=== PATIENT | female | born 1980 | race American Indian/Alaskan Native ===

== ENCOUNTER 2024-03-12 08:23 | Inpatient (IN) | payer MEDICAID, SELFPAY ==
[2024-03-12] VITALS (40 sets, daily range): BP systolic 97–126; BP diastolic 46–77; PULSE 75–104; RESP 15–36; TEMP 36.1–37.8; O2SAT 95–100; BMI 29.9; BMI 30.6
--- NOTE | 2024-03-12 | PATH_ITS ---
[facility] Accession Number: [id number] No. of containers..01 Tissue . 01 Material submitted: . appendix - APPENDIX . 01 Diagnosis: APPENDIX, APPENDECTOMY: Acute suppurative and necrotizing appendicitis, and associated acute serositis. Negative for malignancy. MRV 03/16/2024 1256 Local . 01 Electronically signed: . Isaías Fleming MD, Pathologist NPI- [id number] . 01 Gross description: . Received in formalin with two patient identifiers and appendix, is a boss vermiform appendix, 6.2 cm in length by 1.0 cm in diameter, with boss, roughened serosa and a full thickness defect, 0.2 cm in greatest dimension with adherent boss material consistent with exudate. The mesoappendix extends out to 2.4 cm. The margin is inked blue, and sectioning reveals a lumen with brown solid material measuring 0.3 cm in diameter. The fernandez average 0.2 cm thick, and are otoole-boss with no lesions identified. Twister Operator sections to include the margin, one-half of the bisected distal tip, and cross section to include area of defect are submitted in A1. ([id number]) /MRV 03/15/2024 1651 Local . 01 Pathologist provided ICD-10: K35.80 . 01 CPT . 451472 Specimen Comment: A courtesy copy of this report has been sent to [phone] Performed at: [address] [id number] MD Moses Bingham MD Phone: [phone]
[2024-03-12] MEDS: ONDANSETRON 4 MG/2 ML INJ IV ×2 (08:35→15:22)
--- NOTE | 2024-03-12 08:35 | ED_ITS ---
HPI - General Adult General Chief complaint: Abdominal Pain Stated complaint: vomiting, abd pain t-2 Time Seen by Provider: 03/12/24 08:27 Source: patient Mode of arrival: Ambulatory Limitations: no limitations History of Present Illness HPI narrative: Patient is a 43-year-old female. No prior abdominal surgeries who is here for evaluation of 2 days of generalized abdominal discomfort nausea and diarrhea. No urinary symptoms. States she can not eat because every time she does she becomes very nauseous in the pain gets worse. No fevers. No recent travel. Has not tried anything for the symptoms prior to arrival. No chest pain or shortness of breath. Related Data Home Medications Medication Instructions Recorded Confirmed [ VITAMINS] 1 tab PO Q DAY ##0 08/09/10 Allergies Allergy/AdvReac Type Severity Reaction Status Date / Time INGREDIENT: NKDA - NO KNOWN Allergy Unknown Uncoded 12/09/17 12:01 DRUG ALLERGIES Review of Systems Review of Systems Narrative: See HPI Patient History Social History Smoking Status: Never smoker Exam Initial Vital Signs Initial Vital Signs: Vital Signs Temperature 98.0 F 03/12/24 08:27 Pulse Rate 103 H 03/12/24 08:27 Respiratory Rate 32 H 03/12/24 08:27 Blood Pressure 97/46 L 03/12/24 08:27 Pulse Oximetry 100 03/12/24 08:27 Oxygen Delivery Method Room Air 03/12/24 08:27 [facility] Head: normal to inspection and normocephalic Resp Effort & Inspection: normal respiratory effort Auscultation: clear to auscultation bilaterally Cardio Rate: regular rate Rhythm: regular rhythm GI Inspection: normal to inspection and non-distended Palpation: soft, guarding, No rigid and tender Skin General: no rashes or lesions noted Neuro General: patient alert, patient awake and moves all extremities Extrem General: normal to inspection Course Orders Ordered: ED Orders 03/12/24 08:34 CT abdomen pelvis w con Stat 03/12/24 08:37 Complete Blood Count AUTO DIFF Stat Comprehensive Metabolic Panel Stat Lactate (Lactic Acid) Stat Lipase Stat Test Serum,Qual Stat 03/12/24 08:56 Packed Cells Stat Type and Screen Stat 03/12/24 10:13 RETIC [Reticulocyte Count, Percent] Stat 03/12/24 10:14 Consult to General Surgery Stat 03/12/24 10:15 Blood Culture Stat Discontinued Medications Sodium Chloride (Normal Saline 0.9%) 1,000 mls @ 1,000 mls/hr IV BOLUS ONE Stop: 03/12/24 09:26 Last Infusion: 03/12/24 09:37 Dose: Infused Documented By: Admin: 03/12/24 08:40 Dose: 1,000 mls/hr Documented By: JAYRO Piperacillin Sod/Tazobactam (Sod 4.5 gm/ Sodium Chloride) 100 mls @ 200 mls/hr IV NOW ONE Stop: 03/12/24 10:08 Last Admin: 03/12/24 10:34 Dose: 200 mls/hr Documented By: SCARLET Ketorolac Tromethamine (Ketorolac 30 Mg/Ml Vial) 30 mg IV NOW ONE Stop: 03/12/24 08:35 Last Admin: 03/12/24 09:37 Dose: Not Given Documented By: SCARLET Morphine Sulfate (Morphine 4 Mg/Ml Inj) 4 mg IV NOW ONE Stop: 03/12/24 08:59 Last Admin: 03/12/24 09:43 Dose: 4 mg Documented By: SCARLET Ondansetron HCl (Ondansetron 4 Mg/2 Ml Inj) 4 mg IV NOW ONE Stop: 03/12/24 08:28 Last Admin: 03/12/24 08:35 Dose: 4 mg Documented By: JAYRO Vital Signs Vital signs: Vital Signs - 8 hr 03/12/24 08:27 03/12/24 08:30 03/12/24 08:31 Temperature 98.0 F Pulse Rate 103 H Respiratory Rate 32 H Blood Pressure 97/46 L 97/46 L Blood Pressure [Right Arm] Pulse Oximetry 100 100 Oxygen Delivery Method Room Air 03/12/24 08:31 03/12/24 08:45 03/12/24 08:45 Temperature Pulse Rate 102 H 92 H Respiratory Rate 26 H Blood Pressure 106/54 L Blood Pressure [Right Arm] Pulse Oximetry 100 98 Oxygen Delivery Method Room Air 03/12/24 09:00 03/12/24 09:00 03/12/24 09:10 Temperature Pulse Rate 95 H Respiratory Rate 31 H Blood Pressure 100/52 L 106/52 L Blood Pressure [Right Arm] Pulse Oximetry 100 Oxygen Delivery Method 03/12/24 09:10 03/12/24 09:11 03/12/24 09:25 Temperature Pulse Rate 95 H 96 H Respiratory Rate 31 H 24 Blood Pressure 103/58 L Blood Pressure [Right Arm] 106/52 L Pulse Oximetry 100 98 Oxygen Delivery Method Room Air 03/12/24 09:25 03/12/24 09:30 03/12/24 09:30 Temperature Pulse Rate 100 H 96 H Respiratory Rate 29 H 29 H Blood Pressure 115/66 Blood Pressure [Right Arm] Pulse Oximetry 100 100 Oxygen Delivery Method 03/12/24 09:40 03/12/24 09:40 03/12/24 09:47 Temperature Pulse Rate 98 H Respiratory Rate 25 H Blood Pressure 105/59 L 102/58 L Blood Pressure [Right Arm] Pulse Oximetry 100 Oxygen Delivery Method 03/12/24 09:47 03/12/24 09:50 03/12/24 09:50 Temperature Pulse Rate 99 H 97 H Respiratory Rate 36 H 28 H Blood Pressure 107/54 L Blood Pressure [Right Arm] Pulse Oximetry 100 100 Oxygen Delivery Method 03/12/24 10:06 03/12/24 10:23 Temperature 100.0 F H 99.7 F H Pulse Rate 94 H 96 H Respiratory Rate 28 H 24 Blood Pressure 103/55 L 107/56 L Blood Pressure [Right Arm] Pulse Oximetry Oxygen Delivery Method Medical Decision Making Lab Data Lab results reviewed: Yes I reviewed the patient's lab results. 03/12/24 08:37 03/12/24 08:37 Labs: Lab Results 03/12/24 03/12/24 Range/Units 08:37 08:56 WBC 9.6 (4.5-11.0) X10^3/uL RBC 2.77 L (4.0-5.2) X10^6/uL Hgb 3.9 L* (12.0-16.0) g/dL Hct 14.5 L* (36-46) % MCV 52.2 L (80-100) fL MCH 14.0 L (26-34) PG MCHC 26.8 L (30-36) % RDW 21.2 H (11.6-14.8) % Plt Count 419 H (150-400) X10^3/uL Neut % (Auto) 80.0 H (50-75) % Lymph % (Auto) 12.4 L (25-40) % [place] % (Auto) 7.1 (3-14) % Eos % (Auto) 0.1 L (2-4) % Baso % (Auto) 0.4 (0-2) % Neut # (Auto) 7700 H (8903-8572) /uL Lymph # (Auto) 1200 (5280-1299) /uL [place] # (Auto) 700 (0-900) /uL Eos # (Auto) 0 (0-450) /uL Baso # (Auto) 0 (0-100) /uL RBC Morphology See below Polychromasia 1+ H Hypochromasia 2+ H Anisocytosis 3+ H Microcytosis 2+ H Tear Drop Cells 1+ H Ovalocytes 1+ H Sodium 138 (137-145) mmol/L Potassium 3.3 L (3.4-5.1) mmol/L Chloride 109 H (98-107) mmol/L Carbon Dioxide 21 L (22-32) mmol/L BUN 4 L (7-17) mg/dL Creatinine 0.77 (0.52-1.04) mg/dL Estimated GFR > 60 (>60) mL/min BUN/Creatinine Ratio 5.2 L (6-22) Glucose 131 H (70-100) mg/dL Lactate 1.9 (0.7-2.1) mmol/L Calcium 8.4 (8.4-10.2) mg/dL Total Bilirubin 2.7 H (0.2-1.3) mg/dL AST 21 (14-36) IU/L ALT 12 (<35) IU/L Alkaline Phosphatase 105 (38-126) U/L Total Protein 7.5 (6.3-8.2) g/dL Albumin 4.4 (3.5-5.0) g/dL Globulin 3.1 (1.7-4.1) g/dL Albumin/Globulin Ratio 1.4 (1.0-2.8) Lipase 30 (23-300) U/L Serum , Qual Negative (Negative) Blood Type O Positive Antibody Screen Negative Crossmatch See Detail Imaging Data CT scan - abdomen/pelvis: Radiologist's Impression: PROCEDURE: CT ABDOMEN PELVIS W CON INDICATIONS: generalized abd pain TECHNIQUE: After the administration of intravenous contrast, axial sections acquired from the lung bases to the pubic symphysis. Coronal and sagittal reformats were performed. For radiation dose reduction, the following was used: automated exposure control, adjustment of mA and/or kV according to patient size. COMPARISON: None. FINDINGS: Image quality: Diagnostic. Lower Chest: No significant findings. ABDOMEN: Liver: No solid mass. There is hepatomegaly and hepatic steatosis. Gallbladder: No radiopaque gallstones or wall thickening. Biliary ducts: No biliary dilation. Pancreas: No ductal dilation. Spleen: Size is within normal limits. Adrenal Glands: No adrenal nodules. Kidneys and Ureters: No hydronephrosis. No solid mass. Sub cm midpole left renal cyst is seen measures 7 mm in size. No complex renal cystic lesion which requires follow up. Stomach and Bowel: There is no evidence of bowel obstruction. Significant wall thickening and mesenteric fat stranding in right lower quadrant abdomen is seen without normal appearing appendix. No abscess collection. No other area of abnormal bowel wall thickening. Peritoneum: No abnormal intraperitoneal fluid. No free air. Ventral Wall: No significant ventral hernia. Abdominal Nodes: No retroperitoneal or mesenteric adenopathy by size criteria. Vessels: Aorta and inferior vena cava are normal in size. PELVIS: Pelvic Organs: Unremarkable. Bladder: No bladder wall thickening, accounting for underdistention. Pelvic Nodes: No enlarged lymph nodes. Miscellaneous: No inguinal hernias are seen. Bones: No aggressive osseous abnormality. IMPRESSION: 1. Finding is suggestive of acute appendicitis with inflammatory changes in right lower quadrant. No signs of perforation. No free fluid or free air. No abscess collection. 2. Hepatomegaly, and hepatic steatosis. No discrete hepatic lesion. MDM Narrative Medical decision making narrative: 0900: Patient's hemoglobin and hematocrit are low. Which is somewhat of a surprising finding. She was not tachycardic. No hypotensive. Has not had melena. Has not had bright red blood per rectum. Potentially thought that she had a small amount of dark colored vomit yesterday. She thinks that she has had a blood transfusion in the past. States that was a couple years ago when she had COVID. She does not know why she had the blood transfusion in his not 100% sure that she did receive blood. She does not drink alcohol. Took Advil 1 time yesterday but otherwise takes no other nonsteroidal anti-inflammatories. Is not on blood thinners. Discussed the risks and benefits of a blood transfusion and the patient agreed to the blood transfusion. CT scan shows acute appendicitis without perforation. Will start the patient on Zosyn. Patient is receiving a blood transfusion. Discussed the case with Dr. Rincon on-call for General surgery who asked that the patient be admitted to the medicine service because of her anemia. He would see the patient and make decisions about surgery and colonoscopy. I then discuss the case with Dr. Celis hospitalist on-call who will admit. Discussed the need for admission with the patient. She expressed understanding and agreement. Discharge Plan Departure Patient Disposition: Admitted As Inpatient Clinical Impression: Acute appendicitis, Anemia Admit Date/Time: 03/12/24 10:36
[2024-03-12] MEDS: SODIUM CHLORIDE 0.9% 1,000 ML 1000 ML IV (08:40)
[2024-03-12 08:51] LABS: Add Manual Diff / Slide Review NO; Basophils Absolute Auto 0 /uL (0-100); Basophils Percent Auto 0.4 % (0-2); Eosinophils Absolute Auto 0 /uL (0-450); Eosinophils Percent Auto 0.1 % (2-4); Hemoglobin 3.9 g/dL (12.0-16.0); Lymphocytes Absolute Auto 1200 /uL (1100-4500); Lymphocytes Percent Auto 12.4 % (25-40); Mean Corpuscular HGB Conc 26.8 % (30-36); Mean Corpuscular Volume 52.2 fL (80-100); Monocytes Absolute Auto 700 /uL (0-900); Monocytes Percent Auto 7.1 % (3-14); Neutrophils Absolute Auto 7700 /uL (1500-7000); Platelet Count 419 X10^3/uL (150-400); Red Blood Cell Count 2.77 X10^6/uL (4.0-5.2); Red Cell Distribution Width 21.2 % (11.6-14.8); White Blood Cell Count 9.6 X10^3/uL (4.5-11.0)
[2024-03-12 08:52] LABS: Hematocrit 14.5 % (36-46)
[2024-03-12 09:02] LABS: Alanine Aminotransferase 12 IU/L (<35); Albumin 4.4 g/dL (3.5-5.0); Albumin Globulin Ratio 1.4 (1.0-2.8); Alkaline Phosphatase 105 U/L (38-126); Aspartate Aminotransferase 21 IU/L (14-36); BUN Creatinine Ratio 5.2 (6-22); Bilirubin Total 2.7 mg/dL (0.2-1.3); Blood Urea Nitrogen 4 mg/dL (7-17); Calcium 8.4 mg/dL (8.4-10.2); Carbon Dioxide 21 mmol/L (22-32); Chloride 109 mmol/L (98-107); Estimated Glomerular Filt Rate > 60 mL/min (>60); Globulin 3.1 g/dL (1.7-4.1); Glucose 131 mg/dL (70-100); HEMOLYSIS < 15 (0-50); Lipase 30 U/L (23-300); Potassium 3.3 mmol/L (3.4-5.1); Pregnancy Test Serum,Qual Negative (Negative); Sodium 138 mmol/L (137-145); Total Protein 7.5 g/dL (6.3-8.2)
[2024-03-12 09:12] LABS: Anisocytosis 3+
[2024-03-12 09:13] LABS: Hypochromasia 2+; Microcytosis 2+
[2024-03-12 09:14] LABS: Ovalocytes 1+; Tear Drop Cells 1+
[2024-03-12 09:15] LABS: Polychromasia 1+
[2024-03-12] MEDS: MORPHINE 4 MG/ML INJ IV (09:43)
[2024-03-12 10:17] LABS: Lactate (Lactic Acid) 1.9 mmol/L (0.7-2.1)
[2024-03-12] MEDS: PIPERACILLIN/TAZO 4.5 GM in SODIUM CHLORIDE 0.9% 100 ML IV (10:34)
--- NOTE | 2024-03-12 10:57 | PM.HP.1 ---
History of Present Illness History of Present Illness Date Patient Seen: 03/12/24 Time Patient Seen: 13:00 Chief complaint: vomiting, abd pain t-2 Narrative: The patient is a 43-year-old female with a history of no previous abdominal surgery. She presented with right lower quadrant pain which has been progressive over the last day. In the emergency department a CT scan indicated appendicitis. The patient is tender in all quadrants of her abdomen. She was also found to have a hemoglobin of 3.9 and given 1 unit of blood. She notes a history of iron being low but no clear memory of iron-deficiency anemia. She denies any vomiting but she was nauseated. She had a normal bowel movement 2 days ago. Any movement increases her pain. She does have a history of heavy periods over the years and is just at the end of a. At this time. She denies any trauma. She had 1 bite of Jell-O and had increased pain. General surgery saw her and elected to take her for an exploratory laparotomy and possible laparoscopic appendectomy today. Anesthesia has requested a 2nd unit of blood and this is ordered stat. [facility] Social History household members: spouse and family Smoking Status: Never smoker Meds Home Medications and Allergies Allergies Allergy/AdvReac Type Severity Reaction Status Date / Time No Known Allergies Allergy Verified 03/12/24 13:14 Review of Systems Review of Systems Narrative: All else reviewed and otherwise unremarkable except as noted in the history and physical. Exam Vital Signs (past 8 hours): - 03/12/24 08:27 03/12/24 08:30 03/12/24 08:31 Temperature 98.0 F Pulse Rate 103 H Respiratory Rate 32 H Blood Pressure 97/46 L 97/46 L Blood Pressure [Right Arm] Pulse Oximetry 100 100 Oxygen Delivery Method Room Air 03/12/24 08:31 03/12/24 08:45 03/12/24 08:45 Temperature Pulse Rate 102 H 92 H Respiratory Rate 26 H Blood Pressure 106/54 L Blood Pressure [Right Arm] Pulse Oximetry 100 98 Oxygen Delivery Method Room Air 03/12/24 09:00 03/12/24 09:00 03/12/24 09:10 Temperature Pulse Rate 95 H Respiratory Rate 31 H Blood Pressure 100/52 L 106/52 L Blood Pressure [Right Arm] Pulse Oximetry 100 Oxygen Delivery Method 03/12/24 09:10 03/12/24 09:11 03/12/24 09:25 Temperature Pulse Rate 95 H 96 H Respiratory Rate 31 H 24 Blood Pressure 103/58 L Blood Pressure [Right Arm] 106/52 L Pulse Oximetry 100 98 Oxygen Delivery Method Room Air 03/12/24 09:25 03/12/24 09:30 03/12/24 09:30 Temperature Pulse Rate 100 H 96 H Respiratory Rate 29 H 29 H Blood Pressure 115/66 Blood Pressure [Right Arm] Pulse Oximetry 100 100 Oxygen Delivery Method 03/12/24 09:40 03/12/24 09:40 03/12/24 09:47 Temperature Pulse Rate 98 H Respiratory Rate 25 H Blood Pressure 105/59 L 102/58 L Blood Pressure [Right Arm] Pulse Oximetry 100 Oxygen Delivery Method 03/12/24 09:47 03/12/24 09:50 03/12/24 09:50 Temperature Pulse Rate 99 H 97 H Respiratory Rate 36 H 28 H Blood Pressure 107/54 L Blood Pressure [Right Arm] Pulse Oximetry 100 100 Oxygen Delivery Method 03/12/24 10:00 03/12/24 10:00 03/12/24 10:04 Temperature Pulse Rate 94 H Respiratory Rate 20 Blood Pressure 105/53 L 103/55 L Blood Pressure [Right Arm] Pulse Oximetry 98 Oxygen Delivery Method 03/12/24 10:04 03/12/24 10:06 03/12/24 10:12 Temperature 100.0 F H Pulse Rate 95 H 94 H 97 H Respiratory Rate 26 H 28 H 24 Blood Pressure 103/55 L Blood Pressure [Right Arm] Pulse Oximetry 99 100 Oxygen Delivery Method 03/12/24 10:12 03/12/24 10:20 03/12/24 10:20 Temperature Pulse Rate 100 H Respiratory Rate 27 H Blood Pressure 114/53 L 114/58 L Blood Pressure [Right Arm] Pulse Oximetry 100 Oxygen Delivery Method 03/12/24 10:23 03/12/24 10:23 03/12/24 10:23 Temperature 99.7 F H Pulse Rate 96 H 98 H Respiratory Rate 24 26 H Blood Pressure 107/56 L 107/56 L Blood Pressure [Right Arm] Pulse Oximetry 99 Oxygen Delivery Method 03/12/24 10:30 03/12/24 10:30 07/13/24 10:40 Temperature Pulse Rate 97 H 96 H Respiratory Rate 20 20 Blood Pressure 111/55 L Blood Pressure [Right Arm] Pulse Oximetry 99 98 Oxygen Delivery Method Room Air 03/12/24 10:40 Temperature Pulse Rate Respiratory Rate Blood Pressure 112/57 L Blood Pressure [Right Arm] Pulse Oximetry Oxygen Delivery Method Oxygen Delivery Method Room Air Narrative Exam Narrative: NAD, alert and oriented, fluent speech, calm. Normocephalic skull, EOMI, anicteric sclera, symmetric pupils. Oropharynx unremarkable, no droop. Neck supple, midline trachea, no adenopathy. Lungs clear, normal rate and effort. Heart regular, no murmur gallop or rub. Abdomen is soft, non distended and relatively tender in all quadrants. Extremities are free of edema. Skin is free of rash or lesions. Joints are not swollen or deformed. Judgment appears to be normal. Objective Imaging CT scan - abdomen: Radiologist's impression: 1. Finding is suggestive of acute appendicitis with inflammatory changes in right lower quadrant. No signs of perforation. No free fluid or free air. No abscess collection. 2. Hepatomegaly, and hepatic steatosis. No discrete hepatic lesion. Labs 03/12/24 12:50 03/12/24 08:37 Labs: Laboratory Results - last 24 hr 03/12/24 03/12/24 08:37 08:56 WBC 9.6 RBC 2.77 L Hgb 3.9 L* Hct 14.5 L* MCV 52.2 L MCH 14.0 L MCHC 26.8 L RDW 21.2 H Plt Count 419 H Neut % (Auto) 80.0 H Lymph % (Auto) 12.4 L [place] % (Auto) 7.1 Eos % (Auto) 0.1 L Baso % (Auto) 0.4 Neut # (Auto) 7700 H Lymph # (Auto) 1200 [place] # (Auto) 700 Eos # (Auto) 0 Baso # (Auto) 0 RBC Morphology See below Polychromasia 1+ H Hypochromasia 2+ H Anisocytosis 3+ H Microcytosis 2+ H Tear Drop Cells 1+ H Ovalocytes 1+ H Sodium 138 Potassium 3.3 L Chloride 109 H Carbon Dioxide 21 L BUN 4 L Creatinine 0.77 Estimated GFR > 60 BUN/Creatinine Ratio 5.2 L Glucose 131 H Lactate 1.9 Calcium 8.4 Total Bilirubin 2.7 H AST 21 ALT 12 Alkaline Phosphatase 105 Total Protein 7.5 Albumin 4.4 Globulin 3.1 Albumin/Globulin Ratio 1.4 Lipase 30 Serum , Qual Negative Blood Type O Positive Antibody Screen Negative Crossmatch See Detail Assessment & Plan Assessment & Plan narrative: 1. Abdominal pain with evidence of acute appendicitis, present on admission and active. 2. Profound anemia without report of recent melena or blood per rectum, present on admission and active. 3. Hypokalemia, present on admission and active. Plan: -transfuse a 2nd unit of blood stat. -OR for appendectomy and exploratory lap. -we will run anemia panel including iron stores. -we will replace potassium. She was full resuscitation. There is a 2 midnight expectation of need for hospital services. She was admitted inpatient status. Time-Based Coding :: [TOTAL MINUTES] spent with patient and on the chart (including review of chart, obtaining history, exam, reviewing outside data, placing orders, documenting exam and treatment plan, and counseling patient) on [DATE]. Quality MIPS - Admit I confirm the patient?s Advance Care Plan is present, Code status is documented, Surrogate decision maker is in patient?s record [If Yes, STOP here]: Yes MIPS - Meds 'Current medications' to include all prescriptions, [id number] products, herbals, cannabis/cannabidiol products, and vitamin/mineral/dietary (nutritional) supplements. I have utilized all available resources to obtain, update, or review the patient?s current medications. [If Yes, STOP here]: Yes
[2024-03-12] MEDS: DEXTROSE 5%-0.9% NS 1,000 ML 100 ML IV ×2 (11:25→17:28)
[2024-03-12] MEDS: OXYCODONE IR 5 MG TABLET PO ×2 (11:55→23:10)
--- NOTE | 2024-03-12 12:31 | P.CONS_ITS ---
History of Present Illness Consult details Date Patient Seen: 03/12/24 Time Patient Seen: 12:32 Chief complaint: vomiting, abd pain t-2 Narrative: Emerita is a 43-year-old woman presented to the emergency department today with 2 days of abdominal pain. A CT scan was suggestive of acute uncomplicated appendicitis. She was also noted to be profoundly anemic with a hemoglobin of 3.9. She has not noted any obvious rectal bleeding or melena. She has no known significant past medical history to indicate cause for anemia. She did receive a unit of packed red blood cells upon admission which has completed. She consumed 1 spoon full of Jell-O and developed sudden increase in her abdominal pain. Meds Home Medications and Allergies Allergies Allergy/AdvReac Type Severity Reaction Status Date / Time INGREDIENT: NKDA - NO KNOWN Allergy Unknown Uncoded 12/09/17 12:01 DRUG ALLERGIES Exam Vital Signs (past 8 hours): - 03/12/24 08:27 03/12/24 08:30 03/12/24 08:31 Temperature 98.0 F Pulse Rate 103 H Respiratory Rate 32 H Blood Pressure 97/46 L 97/46 L Blood Pressure [Right Arm] Pulse Oximetry 100 100 Oxygen Delivery Method Room Air Oxygen Flow Rate 03/12/24 08:31 03/12/24 08:45 03/12/24 08:45 Temperature Pulse Rate 102 H 92 H Respiratory Rate 26 H Blood Pressure 106/54 L Blood Pressure [Right Arm] Pulse Oximetry 100 98 Oxygen Delivery Method Room Air Oxygen Flow Rate 03/12/24 09:00 03/12/24 09:00 03/12/24 09:10 Temperature Pulse Rate 95 H Respiratory Rate 31 H Blood Pressure 100/52 L 106/52 L Blood Pressure [Right Arm] Pulse Oximetry 100 Oxygen Delivery Method Oxygen Flow Rate 03/12/24 09:10 03/12/24 09:11 03/12/24 09:25 Temperature Pulse Rate 95 H 96 H Respiratory Rate 31 H 24 Blood Pressure 103/58 L Blood Pressure [Right Arm] 106/52 L Pulse Oximetry 100 98 Oxygen Delivery Method Room Air Oxygen Flow Rate 03/12/24 09:25 03/12/24 09:30 03/12/24 09:30 Temperature Pulse Rate 100 H 96 H Respiratory Rate 29 H 29 H Blood Pressure 115/66 Blood Pressure [Right Arm] Pulse Oximetry 100 100 Oxygen Delivery Method Oxygen Flow Rate 03/12/24 09:40 03/12/24 09:40 03/12/24 09:47 Temperature Pulse Rate 98 H Respiratory Rate 25 H Blood Pressure 105/59 L 102/58 L Blood Pressure [Right Arm] Pulse Oximetry 100 Oxygen Delivery Method Oxygen Flow Rate 03/12/24 09:47 03/12/24 09:50 03/12/24 09:50 Temperature Pulse Rate 99 H 97 H Respiratory Rate 36 H 28 H Blood Pressure 107/54 L Blood Pressure [Right Arm] Pulse Oximetry 100 100 Oxygen Delivery Method Oxygen Flow Rate 03/12/24 10:00 03/12/24 10:00 03/12/24 10:04 Temperature Pulse Rate 94 H Respiratory Rate 20 Blood Pressure 105/53 L 103/55 L Blood Pressure [Right Arm] Pulse Oximetry 98 Oxygen Delivery Method Oxygen Flow Rate 03/12/24 10:04 03/12/24 10:06 03/12/24 10:12 Temperature 100.0 F H Pulse Rate 95 H 94 H 97 H Respiratory Rate 26 H 28 H 24 Blood Pressure 103/55 L Blood Pressure [Right Arm] Pulse Oximetry 99 100 Oxygen Delivery Method Oxygen Flow Rate 03/12/24 10:12 03/12/24 10:20 03/12/24 10:20 Temperature Pulse Rate 100 H Respiratory Rate 27 H Blood Pressure 114/53 L 114/58 L Blood Pressure [Right Arm] Pulse Oximetry 100 Oxygen Delivery Method Oxygen Flow Rate 03/12/24 10:23 03/12/24 10:23 03/12/24 10:23 Temperature 99.7 F H Pulse Rate 96 H 98 H Respiratory Rate 24 26 H Blood Pressure 107/56 L 107/56 L Blood Pressure [Right Arm] Pulse Oximetry 99 Oxygen Delivery Method Oxygen Flow Rate 03/12/24 10:30 03/12/24 10:30 03/12/24 10:40 Temperature Pulse Rate 97 H 96 H Respiratory Rate 20 20 Blood Pressure 111/55 L Blood Pressure [Right Arm] Pulse Oximetry 99 98 Oxygen Delivery Method Room Air Oxygen Flow Rate 03/12/24 10:40 03/12/24 10:50 03/12/24 10:50 Temperature Pulse Rate 93 H Respiratory Rate 21 Blood Pressure 112/57 L 111/58 L Blood Pressure [Right Arm] Pulse Oximetry 98 Oxygen Delivery Method Oxygen Flow Rate 03/12/24 10:51 03/12/24 11:00 03/12/24 11:00 Temperature Pulse Rate 93 H Respiratory Rate 21 Blood Pressure 111/56 L Blood Pressure [Right Arm] Pulse Oximetry 98 Oxygen Delivery Method Room Air Room Air Oxygen Flow Rate 03/12/24 11:10 03/12/24 11:59 Temperature 97.4 F L 98.2 F Pulse Rate 94 H 97 H Respiratory Rate 16 24 Blood Pressure 117/59 L 117/60 Blood Pressure [Right Arm] Pulse Oximetry 100 Oxygen Delivery Method Oxygen Flow Rate 0 Oxygen Delivery Method Room Air Oxygen Flow Rate 0 Narrative Exam Narrative: Abdomen rigid Const General: in distress Other: Moaning in pain with her right leg flexed at the hip Objective Labs 03/12/24 08:37 03/12/24 08:37 Labs: Laboratory Results - last 24 hr 03/12/24 03/12/24 08:37 08:56 WBC 9.6 RBC 2.77 L Hgb 3.9 L* Hct 14.5 L* MCV 52.2 L MCH 14.0 L MCHC 26.8 L RDW 21.2 H Plt Count 419 H Neut % (Auto) 80.0 H Lymph % (Auto) 12.4 L [place] % (Auto) 7.1 Eos % (Auto) 0.1 L Baso % (Auto) 0.4 Neut # (Auto) 7700 H Lymph # (Auto) 1200 [place] # (Auto) 700 Eos # (Auto) 0 Baso # (Auto) 0 RBC Morphology See below Polychromasia 1+ H Hypochromasia 2+ H Anisocytosis 3+ H Microcytosis 2+ H Tear Drop Cells 1+ H Ovalocytes 1+ H Sodium 138 Potassium 3.3 L Chloride 109 H Carbon Dioxide 21 L BUN 4 L Creatinine 0.77 Estimated GFR > 60 BUN/Creatinine Ratio 5.2 L Glucose 131 H Lactate 1.9 Calcium 8.4 Total Bilirubin 2.7 H AST 21 ALT 12 Alkaline Phosphatase 105 Total Protein 7.5 Albumin 4.4 Globulin 3.1 Albumin/Globulin Ratio 1.4 Lipase 30 Serum , Qual Negative Blood Type O Positive Antibody Screen Negative Crossmatch See Detail PFSH Social History household members: spouse and family Tobacco & Substance Use Smoking Status: Never smoker Assessment & Plan Assessment and plan (1) Acute appendicitis: Qualifiers: Acute appendicitis type: with generalized peritonitis Appendicitis gangrene presence: unspecified whether gangrene present Appendicitis perforation presence: unspecified whether perforation present Appendicitis abscess presence: without abscess Qualified Code(s): K35.209 - Acute appendicitis with generalized peritonitis, without abscess, unspecified as to perforation Status: Acute (2) Anemia: Qualifiers: Anemia type: unspecified type Qualified Code(s): D64.9 - Anemia, unspecified Status: Acute Plan Given the sudden severe increase abdominal pain and her physical exam I recommend we proceed with a laparoscopic appendectomy. I mentioned to her there is a small possibility that she may have something other than appendicitis causing pain such as a perforation of her bowel and we would perform any indicated procedures based on the findings at the time of the laparoscopic appendectomy. We will also start another unit of packed red blood cells for her severe anemia since we are proceeding to surgery today. Time-Based Coding :: [TOTAL MINUTES] spent with patient and on the chart (including review of chart, obtaining history, exam, reviewing outside data, placing orders, documenting exam and treatment plan, and counseling patient) on [DATE].
[2024-03-12 13:03] LABS: Add Manual Diff / Slide Review NO; Basophils Absolute Auto 100 /uL (0-100); Basophils Percent Auto 0.6 % (0-2); Eosinophils Absolute Auto 0 /uL (0-450); Lymphocytes Absolute Auto 900 /uL (1100-4500); Lymphocytes Percent Auto 5.9 % (25-40); Mean Corpuscular HGB Conc 27.7 % (30-36); Mean Corpuscular Hemoglobin 16.4 PG (26-34); Mean Corpuscular Volume 59.1 fL (80-100); Monocytes Absolute Auto 700 /uL (0-900); Monocytes Percent Auto 4.4 % (3-14); Neutrophils Absolute Auto 13700 /uL (1500-7000); Neutrophils Percent Auto 89.1 % (50-75); Platelet Count 358 X10^3/uL (150-400); Red Blood Cell Count 3.03 X10^6/uL (4.0-5.2); Red Cell Distribution Width 27.6 % (11.6-14.8); White Blood Cell Count 15.4 X10^3/uL (4.5-11.0)
[2024-03-12 13:08] LABS: Hematocrit 17.9 % (36-46); Reticulocyte Count, Percent 2.7 % (1.1-2.6)
[2024-03-12] MEDS: LACTATED RINGERS 1,000 ML 42 ML IV ×2 (13:18→14:10)
[2024-03-12 13:22] LABS: Anisocytosis 3+; Microcytosis 2+; Ovalocytes 1+
[2024-03-12 13:23] LABS: Hypochromasia 2+; Polychromasia 1+; Tear Drop Cells 1+
--- NOTE | 2024-03-12 14:01 | PC.NURSE ---
1345 pt to OR per bed with anesthesia accompanying. VSS - PRBC in progress
--- NOTE | 2024-03-12 14:21 | SUR.OPER ---
Supine on padded OR bed, head on pillow, safety belt at thigh, left arm padded and tucked at side. Right arm secured on padded arm board <90 degrees abduction. Legs uncrossed. Padded footboard in place. Tape over blanket to secure lower legs.
[2024-03-12] MEDS: ACETAMINOPHEN IV 1,000 MG/100 ML VIAL 400 MG IV (14:25)
[2024-03-12] MEDS: BUPIVACAINE 0.5% W/ EPI (PF) 30 ML VIAL INJ (14:56)
--- NOTE | 2024-03-12 14:57 | PM.OP.1 ---
Operative Date/Time/Diagnoses Date of procedure: 03/12/24 Time of procedure: 14:57 Pre-op diagnosis: Acute appendicitis Post-op diagnosis: same Procedure & Clinicians Procedure: Laparoscopic appendectomy Same procedure as scheduled: Yes Surgeon: Kong Rincon Anesthesia Type: General Operative Notes Procedure in detail: The patient was on scheduled IV antibiotics. The patient was brought to the operating room, placed on the table in the supine position and general endotracheal anesthesia was induced. A time-out was performed. The abdomen was prepped and draped in the usual fashion. After injection of 0.25% Marcaine a 1 cm infraumbilical incision was created with a 15 blade scalpel. The umbilical stalk was grasped with a Margaret clamp to elevate the abdominal wall. The infraumbilical midline fascia was cleared over 1 cm and the fascia was scored with cautery. The peritoneum was pierced with a Peon clamp. The Georges port was placed and the abdomen was insufflated to 15 mmHg. The camera was inserted and there was no evidence of any injury from the entry. Next, 5 mm ports were placed in the suprapubic and left lower quadrant positions under direct vision. The patient was placed in Trendelenburg with the right-side elevated. There was murky fluid in the right lower quadrant and pelvis which was suctioned away. There were loops of small bowel plastered over the appendix. The loops of bowel were bluntly dissected off inflamed appendix. The appendix did appear perforated about two centimeters from the base. There was a good centimeter or so of normal-appearing appendix at the base. The mesoappendix was divided with the Power-seal to the base. Two PDS Endoloops were placed at the base and a 3rd endoloop was placed about a centimeter distally and the appendix was divided sharply. The specimen was placed in a Endo-Catch bag. We suctioned more murky fluid and even some small solid particulate matter from right lower quadrant and pelvis. Limited irrigation was used in the right lower quadrant and pelvis followed by suction to clean away the particular matter. The table was flattened and the terminal ileum and omentum were allowed to slide in over the appendiceal stump. Finally, the 5 mm ports were removed under direct vision. The pneumoperitoneum was released and the Georges port was removed followed by the Endo-Catch bag. Additional local was injected into the fascia and the infraumbilical incision was closed with 2 interrupted 2-0 Vicryl sutures. The skin incisions were closed with 4 Monocryl. Steri-Strips were applied followed by Band-Aids. EBL: 5 mL Specimen: Appendix Post-operative Condition: stable Disposition: PACU
[2024-03-12] MEDS: METOCLOPRAMIDE 10 MG/2 ML INJ IV (15:44)
[2024-03-12] MEDS: PIPERACILLIN/TAZO 3.375 GM in SODIUM CHLORIDE 0.9% 100 ML IV (17:29)
[2024-03-12] MEDS: ACETAMINOPHEN 325 MG TABLET 650 MG PO (23:11)
[2024-03-13] VITALS (9 sets, daily range): BP systolic 91–126; BP diastolic 42–72; PULSE 71–99; RESP 16–18; TEMP 35.7–36.8; O2SAT 95–100
[2024-03-13] MEDS: PIPERACILLIN/TAZO 3.375 GM in SODIUM CHLORIDE 0.9% 100 ML IV ×3 (01:26→17:11)
[2024-03-13] MEDS: DEXTROSE 5%-0.9% NS 1,000 ML 100 ML IV ×3 (01:30→21:33)
[2024-03-13 01:31] LABS: Add Manual Diff / Slide Review NO; Basophils Absolute Auto 0 /uL (0-100); Eosinophils Absolute Auto 0 /uL (0-450); Lymphocytes Absolute Auto 400 /uL (1100-4500); Lymphocytes Percent Auto 1.7 % (25-40); Mean Corpuscular HGB Conc 28.7 % (30-36); Mean Corpuscular Hemoglobin 17.8 PG (26-34); Mean Corpuscular Volume 62.2 fL (80-100); Monocytes Absolute Auto 700 /uL (0-900); Monocytes Percent Auto 3.2 % (3-14); Neutrophils Absolute Auto 20200 /uL (1500-7000); Neutrophils Percent Auto 95.1 % (50-75); Platelet Count 328 X10^3/uL (150-400); Red Blood Cell Count 3.03 X10^6/uL (4.0-5.2); Red Cell Distribution Width 34.4 % (11.6-14.8); White Blood Cell Count 21.3 X10^3/uL (4.5-11.0)
[2024-03-13 01:35] LABS: Hematocrit 18.9 % (36-46); Hemoglobin 5.4 g/dL (12.0-16.0)
[2024-03-13 02:17] LABS: BUN Creatinine Ratio 7.6 (6-22); Blood Urea Nitrogen 5 mg/dL (7-17); Calcium 7.6 mg/dL (8.4-10.2); Carbon Dioxide 21 mmol/L (22-32); Chloride 111 mmol/L (98-107); Estimated Glomerular Filt Rate > 60 mL/min (>60); Glucose 164 mg/dL (70-100); HEMOLYSIS < 15 (0-50); Potassium 3.2 mmol/L (3.4-5.1); Sodium 136 mmol/L (137-145)
[2024-03-13 02:51] LABS: Anisocytosis 3+; Macrocytosis 2+; Microcytosis 2+; Ovalocytes 1+; Platelet Estimate Adequate on smear; Tear Drop Cells 1+
--- NOTE | 2024-03-13 03:27 | PC.NURSE ---
Addendum entered by Valeria Hernandez R.N. 03/13/24 03:29: Reassessed pt and she denies nausea at this time. Denies SOB/headache/ pain of any kind. VS: 104/59,T 98.0, HR 92, R 18, O2 99% RA/ Will continue transfusion per order. Original Note: Patient reported nausea just as blood transfusion started. Notified Dr. Reis and he gave order for zofran and to continue transfusion.
[2024-03-13] MEDS: ONDANSETRON 4 MG ODT SL ×3 (04:07→13:07)
[2024-03-13] MEDS: OXYCODONE IR 5 MG TABLET PO ×5 (05:50→23:45)
--- NOTE | 2024-03-13 08:01 | PM.PN.1 ---
Subjective Subjective Interval history: She was transfused with 2 units of packed cells prior to surgery, and an additional 2 last night. There was no evidence of blood loss anemia with her bowel movements. S: She has improvement of abdominal pain, but still has significant abdominal pain in the left and right lower quadrant. No nausea or vomiting. No flatus or BM. Exam Vital Signs (past 8 hours): - 03/13/24 03:00 03/13/24 03:08 03/13/24 03:23 Temperature 98.0 F 98.0 F 98.0 F Pulse Rate 99 H 74 74 Respiratory Rate 18 18 18 Blood Pressure 95/52 L 91/42 L 93/55 L Pulse Oximetry Oxygen Flow Rate 03/13/24 06:15 03/13/24 07:42 Temperature 98.3 F 98.3 F Pulse Rate 72 72 Respiratory Rate 18 18 Blood Pressure 99/56 L 108/60 Pulse Oximetry 100 Oxygen Flow Rate 0 Oxygen Delivery Method Room Air Oxygen Flow Rate 0 Narrative Exam Narrative: NAD, alert and oriented. Fluent speech. Overall she looks much improved. Lungs are clear, normal rate and effort. Heart is regular, no murmur gallop or rub. Abdomen is soft, non distended. She was quite tender in the left and right lower quadrants. Extremities are free of edema. Objective Labs 03/13/24 01:16 03/13/24 01:16 Labs: Laboratory Results - last 24 hr 03/12/24 03/12/24 03/12/24 08:37 08:56 12:50 WBC 9.6 15.4 H D RBC 2.77 L 3.03 L Hgb 3.9 L* 5.0 L* Hct 14.5 L* 17.9 L* MCV 52.2 L 59.1 L D MCH 14.0 L 16.4 L MCHC 26.8 L 27.7 L RDW 21.2 H 27.6 H Plt Count 419 H 358 Neut % (Auto) 80.0 H 89.1 H Lymph % (Auto) 12.4 L 5.9 L [place] % (Auto) 7.1 4.4 Eos % (Auto) 0.1 L 0.0 L Baso % (Auto) 0.4 0.6 Neut # (Auto) 7700 H 90491 H Lymph # (Auto) 1200 900 L [place] # (Auto) 700 700 Eos # (Auto) 0 0 Baso # (Auto) 0 100 Platelet Estimate RBC Morphology See below See below Polychromasia 1+ H 1+ H Hypochromasia 2+ H 2+ H Anisocytosis 3+ H 3+ H Microcytosis 2+ H 2+ H Macrocytosis Tear Drop Cells 1+ H 1+ H Ovalocytes 1+ H 1+ H Percent Retic 2.7 H Sodium 138 Potassium 3.3 L Chloride 109 H Carbon Dioxide 21 L BUN 4 L Creatinine 0.77 Estimated GFR > 60 BUN/Creatinine Ratio 5.2 L Glucose 131 H Lactate 1.9 Calcium 8.4 Total Bilirubin 2.7 H AST 21 ALT 12 Alkaline Phosphatase 105 Total Protein 7.5 Albumin 4.4 Globulin 3.1 Albumin/Globulin Ratio 1.4 Lipase 30 Serum , Qual Negative Blood Type O Positive Antibody Screen Negative Crossmatch See Detail 03/13/24 01:16 WBC 21.3 H RBC 3.03 L Hgb 5.4 L* Hct 18.9 L* MCV 62.2 L D MCH 17.8 L MCHC 28.7 L RDW 34.4 H Plt Count 328 Neut % (Auto) 95.1 H Lymph % (Auto) 1.7 L [place] % (Auto) 3.2 Eos % (Auto) 0.0 L Baso % (Auto) 0.0 Neut # (Auto) 30101 H Lymph # (Auto) 400 L [place] # (Auto) 700 Eos # (Auto) 0 Baso # (Auto) 0 Platelet Estimate Adequate on smear RBC Morphology See below Polychromasia Hypochromasia Anisocytosis 3+ H Microcytosis 2+ H Macrocytosis 2+ H Tear Drop Cells 1+ H Ovalocytes 1+ H Percent Retic Sodium 136 L Potassium 3.2 L Chloride 111 H Carbon Dioxide 21 L BUN 5 L Creatinine 0.66 Estimated GFR > 60 BUN/Creatinine Ratio 7.6 Glucose 164 H Lactate Calcium 7.6 L Total Bilirubin AST ALT Alkaline Phosphatase Total Protein Albumin Globulin Albumin/Globulin Ratio Lipase Serum , Qual Blood Type Antibody Screen Crossmatch [facility] Social History household members: spouse and family Smoking Status: Never smoker alcohol intake: never Assessment & Plan Assessment & Plan narrative: 1. Abdominal pain with evidence of acute appendicitis, present on admission and active. 2. Profound anemia without report of recent melena or blood per rectum, present on admission and active. Status post 4 units of blood since admission to this morning. 3. Hypokalemia, present on admission and active. Plan: -monitor Hg, blood as needed. Monitor stools. -OR for appendectomy and exploratory lap 03/12. . -pending anemia panel including iron stores. -we will replace potassium. She is full resuscitation. There is a 2 midnight expectation of need for hospital services. She was admitted inpatient status. Estimated date of discharge is 03/14 or 716 pending ability to have oral intake, and reasonable pain control. Also looking for stability of hemoglobin. Time-Based Coding :: 30 min spent with patient and on the chart (including review of chart, obtaining history, exam, reviewing outside data, placing orders, documenting exam and treatment plan, and counseling patient) on 03/13. Quality VTE Deep Vein Thrombosis/Pulmonary Embolism Present on Admission: No
[2024-03-13] MEDS: POTASSIUM CHLORIDE 20 MEQ TAB 40 MEQ PO ×2 (08:24→14:37)
[2024-03-13] MEDS: HYDROMORPHONE 0.5 MG INJ IV ×2 (09:40→17:16)
[2024-03-13 09:44] LABS: Folate 4.8 ng/mL (2.76-20.0); Vitamin B12 317 pg/mL (239-931)
--- NOTE | 2024-03-13 10:10 | PM.PN.1 ---
Subjective Subjective Date Patient Seen: 03/13/24 Time Patient Seen: 10:10 Interval history: Still complaining of lower abdominal pain, greatest in the right lower quadrant Exam Vital Signs (past 8 hours): - 03/13/24 03:00 03/13/24 03:08 03/13/24 03:23 Temperature 98.0 F 98.0 F 98.0 F Pulse Rate 99 H 74 74 Respiratory Rate 18 18 18 Blood Pressure 95/52 L 91/42 L 93/55 L Pulse Oximetry Oxygen Flow Rate 03/13/24 06:15 03/13/24 07:42 Temperature 98.3 F 98.3 F Pulse Rate 72 72 Respiratory Rate 18 18 Blood Pressure 99/56 L 108/60 Pulse Oximetry 100 Oxygen Flow Rate 0 Oxygen Delivery Method Room Air Oxygen Flow Rate 0 Narrative Exam Narrative: Abdomen is soft Tender to palpation in the right and left lower quadrant Objective Labs 03/13/24 01:16 03/13/24 01:16 Labs: Laboratory Results - last 24 hr 03/12/24 03/12/24 03/12/24 08:37 08:56 12:50 WBC 15.4 H D RBC 3.03 L Hgb 5.0 L* Hct 17.9 L* MCV 59.1 L D MCH 16.4 L MCHC 27.7 L RDW 27.6 H Plt Count 358 Neut % (Auto) 89.1 H Lymph % (Auto) 5.9 L [place] % (Auto) 4.4 Eos % (Auto) 0.0 L Baso % (Auto) 0.6 Neut # (Auto) 23545 H Lymph # (Auto) 900 L [place] # (Auto) 700 Eos # (Auto) 0 Baso # (Auto) 100 Platelet Estimate RBC Morphology See below Polychromasia 1+ H Hypochromasia 2+ H Anisocytosis 3+ H Microcytosis 2+ H Macrocytosis Tear Drop Cells 1+ H Ovalocytes 1+ H Percent Retic 2.7 H Sodium Potassium Chloride Carbon Dioxide BUN Creatinine Estimated GFR BUN/Creatinine Ratio Glucose Lactate 1.9 Calcium Vitamin B12 Folate Blood Type O Positive Antibody Screen Negative Crossmatch See Detail 03/13/24 01:16 WBC 21.3 H RBC 3.03 L Hgb 5.4 L* Hct 18.9 L* MCV 62.2 L D MCH 17.8 L MCHC 28.7 L RDW 34.4 H Plt Count 328 Neut % (Auto) 95.1 H Lymph % (Auto) 1.7 L [place] % (Auto) 3.2 Eos % (Auto) 0.0 L Baso % (Auto) 0.0 Neut # (Auto) 67793 H Lymph # (Auto) 400 L [place] # (Auto) 700 Eos # (Auto) 0 Baso # (Auto) 0 Platelet Estimate Adequate on smear RBC Morphology See below Polychromasia Hypochromasia Anisocytosis 3+ H Microcytosis 2+ H Macrocytosis 2+ H Tear Drop Cells 1+ H Ovalocytes 1+ H Percent Retic Sodium 136 L Potassium 3.2 L Chloride 111 H Carbon Dioxide 21 L BUN 5 L Creatinine 0.66 Estimated GFR > 60 BUN/Creatinine Ratio 7.6 Glucose 164 H Lactate Calcium 7.6 L Vitamin B12 317 Folate 4.8 Blood Type Antibody Screen Crossmatch [facility] Social History household members: spouse and family Smoking Status: Never smoker alcohol intake: never Assessment & Plan Assessment and plan (1) Acute appendicitis: Qualifiers: Acute appendicitis type: with generalized peritonitis Appendicitis abscess presence: without abscess Appendicitis gangrene presence: unspecified whether gangrene present Appendicitis perforation presence: unspecified whether perforation present Qualified Code(s): K35.209 - Acute appendicitis with generalized peritonitis, without abscess, unspecified as to perforation Status: Acute (2) Anemia: Qualifiers: Anemia type: unspecified type Qualified Code(s): D64.9 - Anemia, unspecified Status: Acute Assessment & Plan narrative: Now postop day 1 following laparoscopic appendectomy for perforated appendicitis Continue Zosyn for perforated appendicitis If she is feeling better in a few days I would recommend we proceed with an EGD around Thursday Time-Based Coding :: [TOTAL MINUTES] spent with patient and on the chart (including review of chart, obtaining history, exam, reviewing outside data, placing orders, documenting exam and treatment plan, and counseling patient) on [DATE]. Quality VTE Deep Vein Thrombosis/Pulmonary Embolism Present on Admission: No
[2024-03-13 10:27] LABS: Hematocrit 21.9 % (36-46)
[2024-03-13 10:29] LABS: Hemoglobin 6.5 g/dL (12.0-16.0)
--- NOTE | 2024-03-13 10:30 | CM.DANOTE ---
Initial DCP Assessment Visit Note Reviewed EMR and team rounds for pt's medical status and updates. Met with pt and family at bedside to introduce self and role, pt was found to be laying flat, grimacing, expressing feeling in a lot of pain postoperatively. Pt resides in her own home with her spouse and children, her will transport her back home once she's medically stable for home d/c, likely 2-more days, per Hospitalist. Payor: Medicaid Attending: Dr. Rincon Pt is a 43 year-old F who presented with c/o 2-days of generalized abdominal discomfort, nausea, and diarrhea. Unable to eat or keep anything down. CT abd/pelvis in the ED showed acute appendicitis, she was also found to be acutely anemic. She was started on IV ABO's, fluids, and received a unit of blood in her transfusion yesterday. Pain continues to be an issue. Her appendix was found to be perforated and was found to have small bowel plastered and adhered. The surgery became more complex, they needed to remove the attached bowel for the appendix before removing it. DCP will continue to monitor and assist with final d/c recommendations and needs. Discharge Planning/Care Management CM Discharge Assessment Start: 03/13/24 10:28 Freq: Status: Active Protocol: Document 03/13/24 10:29 DPL (Rec: 03/13/24 10:30 DPL [id number]) Discharge Planning Assessment Assigned Group Home Counselor MARTIN Dent Advance Directives? No History Provided By Patient,Family Member,Medical Record Has Patient been admitted in last 30 No days? Prior Living Arrangements House Household Members spouse,family Type of transporation used prior to Drives own vehicle admit Independent with ADL's Yes Is patient alert and oriented? Yes Caregiver for Another Yes: family/children Comment N/A Comment N/A Comment No anticipated d/c needs at this time. Barriers to Discharge No Discharge Plan Home Transportation Arrangement Referrals Initiated None needed Whiteboard Updated in Patient Room with Yes name and ext. # of Group Home Counselor Review Status In Process Please Provide Date Initial DC 03/13/24 Assessment Was Performed
[2024-03-13 14:26] LABS: Bilirubin Conjugated 0.2 md/dL (0.0-0.3)
[2024-03-13] MEDS: ACETAMINOPHEN 325 MG TABLET 650 MG PO (16:50)
[2024-03-14] MEDS: PIPERACILLIN/TAZO 3.375 GM in SODIUM CHLORIDE 0.9% 100 ML IV ×3 (01:53→18:30)
[2024-03-14] MEDS: OXYCODONE IR 5 MG TABLET PO ×5 (03:15→23:40)
--- NOTE | 2024-03-14 03:56 | EKG_ITS ---
[place] [id number] [place] [id number] Test Date: 2024-03-14 Pat Name: Emerita Taveras Department: [facility] Room: 222 Gender: Female [employer]man: DANA : 1980 Requested By: Order Number: [id number] Reading MD: Aj Gamboa MD Measurements Intervals [place] Rate: 91 P: 20 CA: 136 QRS: -9 QRSD: 82 T: -5 QT: 354 QTc: 435 Interpretive Statements Normal sinus rhythm Possible Anterior infarct , age undetermined Electronically Signed On 03-14-2024 7:37:06 PDT by Aj Gamboa MD
[2024-03-14] MEDS: MORPHINE 2 MG/ML INJ IV (04:15)
--- NOTE | 2024-03-14 04:29 | PC.NURSE ---
pt complaining of substernal chest pain that is sharp @ 0345. pt states the pain does not radiate. Audible wheezing heard. MD notified, 12 lead EKG and morphine 2mg IV ordered. BP 154/80, O2 sats 98% on room air, HR 93, temp 97.7.
[2024-03-14 04:43] LABS: Add Manual Diff / Slide Review NO; Basophils Absolute Auto 0 /uL (0-100); Basophils Percent Auto 0.4 % (0-2); Eosinophils Absolute Auto 0 /uL (0-450); Eosinophils Percent Auto 0.3 % (2-4); Hemoglobin 7.8 g/dL (12.0-16.0); Lymphocytes Absolute Auto 600 /uL (1100-4500); Lymphocytes Percent Auto 4.8 % (25-40); Mean Corpuscular HGB Conc 30.2 % (30-36); Mean Corpuscular Hemoglobin 21.2 PG (26-34); Mean Corpuscular Volume 70.3 fL (80-100); Monocytes Absolute Auto 600 /uL (0-900); Monocytes Percent Auto 4.9 % (3-14); Neutrophils Absolute Auto 10300 /uL (1500-7000); Neutrophils Percent Auto 89.6 % (50-75); Platelet Count 320 X10^3/uL (150-400); Red Cell Distribution Width 36.8 % (11.6-14.8); White Blood Cell Count 11.5 X10^3/uL (4.5-11.0)
[2024-03-14 04:54] LABS: Blood Urea Nitrogen 8 mg/dL (7-17); Calcium 7.6 mg/dL (8.4-10.2); Carbon Dioxide 18 mmol/L (22-32); Chloride 113 mmol/L (98-107); Estimated Glomerular Filt Rate > 60 mL/min (>60); Glucose 102 mg/dL (70-100); HEMOLYSIS < 15 (0-50); Sodium 136 mmol/L (137-145)
[2024-03-14 05:05] LABS: Anisocytosis 3+; Platelet Estimate Adequate on smear
[2024-03-14 05:06] LABS: Macrocytosis 2+; Microcytosis 2+; Ovalocytes 1+; Tear Drop Cells 1+
[2024-03-14 05:33] LABS: Troponin I < 0.012 ng/mL (0.01-0.034)
[2024-03-14 07:00] VITALS: BP 120/50; PULSE 93; RESP 20; TEMP 36.4; O2SAT 97
--- NOTE | 2024-03-14 07:45 | P.PN_ITS ---
Subjective Subjective Interval history: She feels better. Still mentially slow. No pain or dyspnea. Exam Vital Signs (past 8 hours): Oxygen Delivery Method Room Air Oxygen Flow Rate 0 Narrative Exam Narrative: NAD, alert and oriented. Fluent speech. Slow to respond. Lungs are clear, normal rate and effort. Heart is regular, no murmur gallop or rub. Abdomen is soft, non distended. Extremities are free of edema. Objective Labs 03/14/24 04:17 03/14/24 04:17 Labs: Laboratory Results - last 24 hr 03/12/24 03/13/24 03/13/24 08:56 01:16 10:08 WBC RBC Hgb 6.5 L* Hct 21.9 L MCV MCH MCHC RDW Plt Count Neut % (Auto) Lymph % (Auto) [place] % (Auto) Eos % (Auto) Baso % (Auto) Neut # (Auto) Lymph # (Auto) [place] # (Auto) Eos # (Auto) Baso # (Auto) Platelet Estimate RBC Morphology Anisocytosis Microcytosis Macrocytosis Tear Drop Cells Ovalocytes Sodium Potassium Chloride Carbon Dioxide BUN Creatinine Estimated GFR BUN/Creatinine Ratio Glucose Calcium Conjugated Bilirubin 0.2 Troponin I Vitamin B12 317 Folate 4.8 Blood Type O Positive Antibody Screen Negative Direct Antiglob Test Negative Crossmatch See Detail 03/14/24 04:17 WBC 11.5 H RBC 3.70 L Hgb 7.8 L Hct 26.0 L MCV 70.3 L D MCH 21.2 L MCHC 30.2 RDW 36.8 H Plt Count 320 Neut % (Auto) 89.6 H Lymph % (Auto) 4.8 L [place] % (Auto) 4.9 Eos % (Auto) 0.3 L Baso % (Auto) 0.4 Neut # (Auto) 27236 H Lymph # (Auto) 600 L [place] # (Auto) 600 Eos # (Auto) 0 Baso # (Auto) 0 Platelet Estimate Adequate on smear RBC Morphology See below Anisocytosis 3+ H Microcytosis 2+ H Macrocytosis 2+ H Tear Drop Cells 1+ H Ovalocytes 1+ H Sodium 136 L Potassium 4.0 Chloride 113 H Carbon Dioxide 18 L BUN 8 Creatinine 0.73 Estimated GFR > 60 BUN/Creatinine Ratio 11.0 Glucose 102 H Calcium 7.6 L Conjugated Bilirubin Troponin I < 0.012 Vitamin B12 Folate Blood Type Antibody Screen Direct Antiglob Test Crossmatch [facility] Social History household members: spouse and family Smoking Status: Never smoker alcohol intake: never Assessment & Plan Assessment & Plan narrative: 1. Perforated acute appendicitis, present on admission and active. 2. Profound anemia without report of recent melena or blood per rectum, present on admission and active. Status post 4 units of blood since admission. 3. Hypokalemia, present on admission and active. Plan: -EGD per surgery Thursday. -advance diet to full liquid. -evaluating anemia, hemolysis labs and Iron pending. Ask about family history (Thal) DUANE: 2-3 more days. She is full resuscitation. There is a 2 midnight expectation of need for hospital services. She was admitted inpatient status. Time-Based Coding :: 30 min spent with patient and on the chart (including review of chart, obtaining history, exam, reviewing outside data, placing orders, documenting exam and treatment plan, and counseling patient) on 03/14. Quality VTE Deep Vein Thrombosis/Pulmonary Embolism Present on Admission: No
[2024-03-14] MEDS: ONDANSETRON 4 MG ODT SL (08:47)
--- NOTE | 2024-03-14 12:34 | PM.PN.1 ---
Subjective Subjective Date Patient Seen: 03/14/24 Time Patient Seen: 12:34 Interval history: Feeling somewhat better today. Has tolerated a clear liquids. Exam Vital Signs (past 8 hours): - 03/14/24 07:00 03/14/24 07:00 Temperature 97.5 F L Pulse Rate 93 H Respiratory Rate 20 Blood Pressure 120/50 L Pulse Oximetry 97 Oxygen Delivery Method Room Air Oxygen Flow Rate 0 Oxygen Delivery Method Room Air Oxygen Flow Rate 0 Narrative Exam Narrative: Lethargic Objective Labs 03/14/24 04:17 03/14/24 04:17 Labs: Laboratory Results - last 24 hr 03/12/24 03/13/24 03/14/24 08:56 10:08 04:17 WBC 11.5 H RBC 3.70 L Hgb 7.8 L Hct 26.0 L MCV 70.3 L D MCH 21.2 L MCHC 30.2 RDW 36.8 H Plt Count 320 Neut % (Auto) 89.6 H Lymph % (Auto) 4.8 L [place] % (Auto) 4.9 Eos % (Auto) 0.3 L Baso % (Auto) 0.4 Neut # (Auto) 55975 H Lymph # (Auto) 600 L [place] # (Auto) 600 Eos # (Auto) 0 Baso # (Auto) 0 Platelet Estimate Adequate on smear RBC Morphology See below Anisocytosis 3+ H Microcytosis 2+ H Macrocytosis 2+ H Tear Drop Cells 1+ H Ovalocytes 1+ H Sodium 136 L Potassium 4.0 Chloride 113 H Carbon Dioxide 18 L BUN 8 Creatinine 0.73 Estimated GFR > 60 BUN/Creatinine Ratio 11.0 Glucose 102 H Calcium 7.6 L Conjugated Bilirubin 0.2 Troponin I < 0.012 Blood Type O Positive Antibody Screen Negative Direct Antiglob Test Negative Crossmatch See Detail PENDING SALE TO [facility] Social History household members: spouse and family Smoking Status: Never smoker alcohol intake: never Assessment & Plan Assessment and plan (1) Anemia: Qualifiers: Anemia type: unspecified type Qualified Code(s): D64.9 - Anemia, unspecified Status: Acute (2) Acute appendicitis: Qualifiers: Acute appendicitis type: with generalized peritonitis Appendicitis abscess presence: without abscess Appendicitis gangrene presence: unspecified whether gangrene present Appendicitis perforation presence: unspecified whether perforation present Qualified Code(s): K35.209 - Acute appendicitis with generalized peritonitis, without abscess, unspecified as to perforation Status: Acute Plan Plan for EGD tomorrow NPO at midnight Time-Based Coding :: [TOTAL MINUTES] spent with patient and on the chart (including review of chart, obtaining history, exam, reviewing outside data, placing orders, documenting exam and treatment plan, and counseling patient) on [DATE]. Quality VTE Deep Vein Thrombosis/Pulmonary Embolism Present on Admission: No
[2024-03-14 12:55] LABS: Lactate Dehydrogenase 165 U/L (120-246)
--- NOTE | 2024-03-14 15:56 | CM.DPC ---
DCP COnt: Per MD, Surgeon plans to take pt to OR for EGD tomorrow Tues and then likely discharge in 1-2 days pending scope results. MARTIN Jack
[2024-03-14 20:00] VITALS: BP 115/58; PULSE 100; RESP 24; TEMP 36.6; O2SAT 94
[2024-03-14] MEDS: HYDROMORPHONE 0.5 MG INJ IV (20:07)
[2024-03-15] VITALS (14 sets, daily range): BP systolic 109–137; BP diastolic 59–89; PULSE 77–86; RESP 13–24; TEMP 35.7–37.3; O2SAT 92–100; BMI 30.6
--- NOTE | 2024-03-15 | PATH_ITS ---
[facility] Accession Number: [id number] No. of containers..01 Tissue . 01 Material submitted: . gastrointestinal site - ANTRAL BIOPSY . 01 Diagnosis: STOMACH, ANTRUM, BIOPSY: Chronic gastritis without neutrophilic activity. Please see comment. Negative for Helicobacter by immunohistochemistry. Negative for intestinal metaplasia. Negative for dysplasia and malignancy. [facility] 03/18/2024 1316 Local . 01 Comment: The morphologic findings are suspicious for Helicobacter pylori gastritis. The absence of Helicobacter pylori organisms could be explained by recent therapy, other antibiotic treatment, or migration of organisms due to proton pump inhibitor therapy. . 01 Electronically signed: . Yaneth Mireles MD, Pathologist NPI- [id number] . 01 Gross description: . Received in formalin with two patient identifiers and antral biopsy, are multiple boss soft tissue fragments aggregating to 1.0 x 0.5 x 0.2 cm. Filtered and submitted in cassette A1. ([id number]) /BRYAN 03/16/2024 0831 Local . 01 Microscopic: . An immunohistochemical stain was performed to evaluate for Helicobacter organisms and is negative. The control stain showed appropriate reactivity. . * This test was developed and its performance characteristics determined by [facility]. It has not been cleared or approved by the U.S. Food and Drug Administration. The FDA has determined that such clearance or approval is not necessary. This test is used for clinical purposes. It should not be regarded as investigational or for research. . 01 Pathologist provided ICD-10: R10.9 . 01 CPT . 732668, R70035 Specimen Comment: A courtesy copy of this report has been sent to [phone] Performed at: [address] [address], [place] [id number] MD Moses Bingham MD Phone: [phone]
[2024-03-15] MEDS: PIPERACILLIN/TAZO 3.375 GM in SODIUM CHLORIDE 0.9% 100 ML IV ×2 (02:02→10:03)
[2024-03-15] MEDS: ACETAMINOPHEN 325 MG TABLET 650 MG PO ×3 (03:03→23:56)
[2024-03-15 05:50] LABS: Hematocrit 23.8 % (36-46); Hemoglobin 7.3 g/dL (12.0-16.0); Mean Corpuscular HGB Conc 30.8 % (30-36); Mean Corpuscular Hemoglobin 21.1 PG (26-34); Mean Corpuscular Volume 68.5 fL (80-100); Platelet Count 257 X10^3/uL (150-400); Red Blood Cell Count 3.47 X10^6/uL (4.0-5.2); Red Cell Distribution Width 36.9 % (11.6-14.8); White Blood Cell Count 6.4 X10^3/uL (4.5-11.0)
[2024-03-15 05:56] LABS: BUN Creatinine Ratio 8.6 (6-22); Blood Urea Nitrogen 6 mg/dL (7-17); Calcium 7.4 mg/dL (8.4-10.2); Carbon Dioxide 20 mmol/L (22-32); Chloride 109 mmol/L (98-107); Estimated Glomerular Filt Rate > 60 mL/min (>60); Glucose 86 mg/dL (70-100); HEMOLYSIS < 15 (0-50); Potassium 3.6 mmol/L (3.4-5.1); Sodium 135 mmol/L (137-145)
[2024-03-15] MEDS: LACTATED RINGERS 1,000 ML 42 ML IV (07:24)
--- NOTE | 2024-03-15 07:38 | PM.PN.1 ---
Subjective Subjective Date Patient Seen: 03/15/24 Time Patient Seen: 07:38 Interval history: Feeling better today Exam Vital Signs (past 8 hours): - 03/15/24 03:03 03/15/24 03:33 03/15/24 07:19 Temperature 99.2 F 98.1 F 97.8 F Pulse Rate 78 Respiratory Rate 16 Blood Pressure 137/89 Pulse Oximetry 98 Oxygen Delivery Method Room Air Oxygen Delivery Method Room Air Oxygen Flow Rate 0 Const General: No acute distress Resp Effort & Inspection: normal respiratory effort Objective Labs 03/15/24 05:25 03/15/24 05:25 Labs: Laboratory Results - last 24 hr 03/13/24 03/15/24 10:08 05:25 WBC 6.4 RBC 3.47 L Hgb 7.3 L Hct 23.8 L MCV 68.5 L MCH 21.1 L MCHC 30.8 RDW 36.9 H Plt Count 257 Sodium 135 L Potassium 3.6 Chloride 109 H Carbon Dioxide 20 L BUN 6 L Creatinine 0.70 Estimated GFR > 60 BUN/Creatinine Ratio 8.6 Glucose 86 Calcium 7.4 L Lactate Dehydrogenase 165 PFSH Social History household members: spouse and family Smoking Status: Never smoker alcohol intake: never Assessment & Plan Assessment and plan (1) Anemia: Qualifiers: Anemia type: unspecified type Qualified Code(s): D64.9 - Anemia, unspecified Status: Acute (2) Acute appendicitis: Qualifiers: Acute appendicitis type: with generalized peritonitis Appendicitis abscess presence: without abscess Appendicitis gangrene presence: unspecified whether gangrene present Appendicitis perforation presence: unspecified whether perforation present Qualified Code(s): K35.209 - Acute appendicitis with generalized peritonitis, without abscess, unspecified as to perforation Status: Acute Plan Doing better today. We discussed the risks and benefits of esophagogastroduodenoscopy to start to diagnosed her anemia. We discussed the risks and benefits and she wishes to proceed. Time-Based Coding :: [TOTAL MINUTES] spent with patient and on the chart (including review of chart, obtaining history, exam, reviewing outside data, placing orders, documenting exam and treatment plan, and counseling patient) on [DATE]. Quality VTE Deep Vein Thrombosis/Pulmonary Embolism Present on Admission: No
--- NOTE | 2024-03-15 07:58 | PM.OP.EGD ---
Operative Date/Time/Diagnoses Date of procedure: 03/15/24 Time of procedure: 07:58 Pre-op diagnosis: Anemia Post-op diagnosis: same Procedure & Clinicians Study performed: Esophagogastroduodenoscopy Same procedure as scheduled: Yes Surgeon: Kong Rincon Procedure Notes Procedure in detail: Surgeon: Kong Rincon MD Anesthesia: Yaneth Gatica timeout was performed. A bite blocked was placed. The patient was positioned in the left lateral decubitus position. Anesthesia was administered. The endoscope was inserted through the bite block and passed through the esophagus and stomach and into the duodenum. The duodenal mucosa appeared normal. The scope was withdrawn into the duodenal bulb and no abnormalities were seen. The scope was withdrawn into the stomach. There was mild antritis and possibly an old, nearly healed small ulcer in the antrum. There were no obvious stigmata of recent bleeding. Biopsies were taken with cold forceps from the antrum. The rest of the stomach was normal. The scope was retroflexed and no abnormalities were seen.. The scope was withdrawn into the esophagus and no abnormalities were seen. The remainder of the esophagus was normal. The scope was withdrawn. The patient was awakened and brought to recovery. Findings: Mild to moderate antritis and possibly a small healing ulcer antrum. No obvious stigmata of recent bleeding Post-procedure Disposition: PACU
[2024-03-15] MEDS: HYDROMORPHONE 0.5 MG INJ IV (11:16)
--- NOTE | 2024-03-15 11:32 | P.PN_ITS ---
Subjective Subjective Interval history: She was still having a fair amount of abdominal pain. Still somewhat weak. Exam Vital Signs (past 8 hours): - 03/16/24 08:00 Temperature 97.1 F L Pulse Rate 71 Respiratory Rate 16 Blood Pressure 124/64 Pulse Oximetry 99 Oxygen Flow Rate 0 Oxygen Delivery Method Room Air Oxygen Flow Rate 0 Narrative Exam Narrative: NAD, alert and oriented. Fluent speech. Lungs are clear, normal rate and effort. Heart is regular, no murmur gallop or rub. Abdomen is soft, non distended. She was automatic lathe tender in the right and left lower quadrants without guarding or rebound. Extremities are free of edema. Objective Labs 03/16/24 05:38 03/16/24 05:38 Labs: Laboratory Results - last 24 hr 03/16/24 05:38 WBC 4.1 L RBC 3.33 L Hgb 7.1 L Hct 22.9 L MCV 68.5 L MCH 21.3 L MCHC 31.0 RDW 37.0 H Plt Count 241 Sodium 137 Potassium 3.6 Chloride 110 H Carbon Dioxide 23 BUN 7 Creatinine 0.60 Estimated GFR > 60 BUN/Creatinine Ratio 11.7 Glucose 88 Calcium 7.3 L [facility] Social History household members: spouse and family Smoking Status: Never smoker alcohol intake: never Assessment & Plan Assessment & Plan narrative: 1. Perforated acute appendicitis, present on admission and active. 2. Profound anemia without report of recent melena or blood per rectum, present on admission and active. Status post 4 units of blood since admission. 3. Hypokalemia, present on admission and active. Plan: -EGD per surgery Thursday. -advance diet to full liquid. -evaluating anemia, hemolysis labs and Iron pending. Ask about family history (Thal) DUANE: 2-3 more days. Time-Based Coding :: [TOTAL MINUTES] spent with patient and on the chart (including review of chart, obtaining history, exam, reviewing outside data, placing orders, documenting exam and treatment plan, and counseling patient) on [DATE]. Quality VTE Deep Vein Thrombosis/Pulmonary Embolism Present on Admission: No
--- NOTE | 2024-03-15 12:01 | CM.DPC ---
DCP Cont. Reviewed EMR and team rounds for status updates. Per Hospitalist, pt is having an EGD today, likely will d/c tomorrow spouse will plan to transport.
[2024-03-15] MEDS: OXYCODONE IR 5 MG TABLET PO (17:40)
[2024-03-16 06:31] LABS: Hematocrit 22.9 % (36-46); Hemoglobin 7.1 g/dL (12.0-16.0); Mean Corpuscular Hemoglobin 21.3 PG (26-34); Mean Corpuscular Volume 68.5 fL (80-100); Platelet Count 241 X10^3/uL (150-400); Red Blood Cell Count 3.33 X10^6/uL (4.0-5.2); White Blood Cell Count 4.1 X10^3/uL (4.5-11.0)
[2024-03-16 06:40] LABS: BUN Creatinine Ratio 11.7 (6-22); Blood Urea Nitrogen 7 mg/dL (7-17); Calcium 7.3 mg/dL (8.4-10.2); Carbon Dioxide 23 mmol/L (22-32); Chloride 110 mmol/L (98-107); Estimated Glomerular Filt Rate > 60 mL/min (>60); Glucose 88 mg/dL (70-100); HEMOLYSIS < 15 (0-50); Potassium 3.6 mmol/L (3.4-5.1); Sodium 137 mmol/L (137-145)
[2024-03-16 08:00] VITALS: BP 124/64; PULSE 71; RESP 16; TEMP 36.2; O2SAT 99
--- NOTE | 2024-03-16 09:29 | PM.PN.1 ---
Subjective Subjective Interval history: She was doing well. Less abdominal pain. She did eat some general diet last evening. No bowel movement. Exam Vital Signs (past 8 hours): - 03/16/24 08:00 Temperature 97.1 F L Pulse Rate 71 Respiratory Rate 16 Blood Pressure 124/64 Pulse Oximetry 99 Oxygen Flow Rate 0 Oxygen Delivery Method Room Air Oxygen Flow Rate 0 Narrative Exam Narrative: NAD, alert and oriented. Fluent speech. Lungs are clear, normal rate and effort. Heart is regular, no murmur gallop or rub. Abdomen is soft, non distended. She was much less tender today. Extremities are free of edema. Objective Labs 03/16/24 05:38 03/16/24 05:38 Labs: Laboratory Results - last 24 hr 03/16/24 05:38 WBC 4.1 L RBC 3.33 L Hgb 7.1 L Hct 22.9 L MCV 68.5 L MCH 21.3 L MCHC 31.0 RDW 37.0 H Plt Count 241 Sodium 137 Potassium 3.6 Chloride 110 H Carbon Dioxide 23 BUN 7 Creatinine 0.60 Estimated GFR > 60 BUN/Creatinine Ratio 11.7 Glucose 88 Calcium 7.3 L [facility] Social History household members: spouse and family Smoking Status: Never smoker alcohol intake: never Assessment & Plan Assessment & Plan narrative: 1. Perforated acute appendicitis, present on admission and active. 2. Profound anemia without report of recent melena or blood per rectum, present on admission and active. Status post 4 units of blood since admission. 3. Hypokalemia, present on admission and active. Plan: -EGD per surgery Thursday. This revealed mild to moderate antritis and possibly a small healing gastric ulcer. -advance diet to full liquid. -evaluating anemia, hemolysis labs and Iron pending. Ask about family history (Thal) -out of bed, walk. Estimated date of discharge is 03/17 assuming stable hemoglobin. We will likely have to defer ongoing evaluation of anemia to outpatient basis. Iron studies are still pending. Time-Based Coding :: [TOTAL MINUTES] spent with patient and on the chart (including review of chart, obtaining history, exam, reviewing outside data, placing orders, documenting exam and treatment plan, and counseling patient) on [DATE]. Quality VTE Deep Vein Thrombosis/Pulmonary Embolism Present on Admission: No
[2024-03-16] MEDS: ONDANSETRON 4 MG ODT SL (12:44)
--- NOTE | 2024-03-16 13:01 | CM.DPC ---
DCP Cont. Reviewed EMR and team rounds for status updates. Per Hospitalist, pt will need 1-more day before she will be medically cleared for home d/c. No needs from CM. Spouse will transport.
[2024-03-16 20:00] VITALS: BP 140/76; PULSE 75; RESP 18; TEMP 35.6; O2SAT 100
[2024-03-17] MEDS: OXYCODONE IR 5 MG TABLET PO (03:09)
[2024-03-17 04:50] LABS: Hematocrit 23.7 % (36-46); Hemoglobin 7.3 g/dL (12.0-16.0); Mean Corpuscular HGB Conc 30.7 % (30-36); Mean Corpuscular Hemoglobin 21.2 PG (26-34); Platelet Count 276 X10^3/uL (150-400); Red Blood Cell Count 3.43 X10^6/uL (4.0-5.2); Red Cell Distribution Width 37.1 % (11.6-14.8); White Blood Cell Count 3.7 X10^3/uL (4.5-11.0)
[2024-03-17 05:04] LABS: BUN Creatinine Ratio 8.5 (6-22); Blood Urea Nitrogen 5 mg/dL (7-17); Calcium 7.6 mg/dL (8.4-10.2); Carbon Dioxide 22 mmol/L (22-32); Chloride 110 mmol/L (98-107); Estimated Glomerular Filt Rate > 60 mL/min (>60); Glucose 101 mg/dL (70-100); HEMOLYSIS < 15 (0-50); Potassium 3.6 mmol/L (3.4-5.1); Sodium 138 mmol/L (137-145)
[2024-03-17 08:01] LABS: Iron 21 ug/dL (37-170)
[2024-03-17 08:08] LABS: Transferrin 249 mg/dL (206-381)
[2024-03-17 08:22] LABS: HEMOLYSIS 20 (0-50); Percent Iron Saturation 6 % (15-50); Total Iron Binding Capacity 343 ug/dL (265-497)
--- NOTE | 2024-03-17 10:30 | P.DS_ITS ---
History of Present Illness History of Present Illness Chief complaint: vomiting, abd pain t-2 Narrative: The patient is a 43-year-old female with a history of no previous abdominal surgery. She presented with right lower quadrant pain which has been progressive over the last day. In the emergency department a CT scan indicated appendicitis. The patient is tender in all quadrants of her abdomen. She was also found to have a hemoglobin of 3.9 and given 1 unit of blood. She notes a history of iron being low but no clear memory of iron-deficiency anemia. She denies any vomiting but she was nauseated. She had a normal bowel movement 2 days ago. Any movement increases her pain. She does have a history of heavy periods over the years and is just at the end of a. At this time. She denies any trauma. She had 1 bite of Jell-O and had increased pain. General surgery saw her and elected to take her for an exploratory laparotomy and possible laparoscopic appendectomy today. Anesthesia has requested a 2nd unit of blood and this is ordered stat. Discharge Providers Provider Date of admission: 03/12/24 10:36 Discharge Date: 03/17/24 Consults: 03/12/24 10:14 Consult to General Surgery Stat Comment: Consulting Provider: Kong Rincon Reason for consultation: acute appendicitis Has provider been notified: Yes Discharge provider: Al Celis MD Summary Hospital Course Discharge Diagnosis: 1. Perforated acute appendicitis, present on admission and active. 2. Profound anemia without report of recent melena or blood per rectum, present on admission and active. Status post 4 units of blood since admission. 3. Hypokalemia, present on admission and active. 4. Gastritis and possible subtle gastric ulcer, present on admission and active. Hospital Course: She was admitted for severe anemia and received a blood transfusion, as well as acute appendicitis. Because of escalation of pain she went immediately to the operating room after receiving 2 units of packed red blood cells. She had evidence of ruptured appendicitis and underwent appendectomy, washout, was treated with IV antibiotics for several days until her white count normalized. She received 1/3 unit of blood. Studies were sent for iron, LDH, and haptoglobin. These were all delayed due to a lack of reagent. These will be pending in completed sometime after her discharge. She does note a history of menorrhagia and anemia as well as iron-deficiency anemia. She had a fair amount of abdominal pain postoperatively but improved on a day-by-day basis. She was able to ambulate and advance diet and have a bowel movement prior to discharge. On the day of discharge she was feeling much improved and felt ready to go home. She will have Protonix b.i.d. for the next 1-2 months for her possible gastric ulcer, as well as pain medication. She will follow up with Dr. Rincon of surgery within the next 1 week to 10 days. He will help arrange an appointment. Status at Discharge Cognitive/behavioral status at discharge: at baseline, oriented Functional status at discharge: independent ambulation Overall status at discharge: patient is back to baseline Time Spent with Patient Time spent: Greater than 30 minutes Exam Vital Signs (past 8 hours): Oxygen Delivery Method Room Air Oxygen Flow Rate 0 Narrative Exam Narrative: NAD, alert and oriented. Fluent speech. Lungs are clear, normal rate and effort. Heart is regular, no murmur gallop or rub. Abdomen is soft, non distended. Much less tenderness, wounds unremarkable. Extremities are free of edema. Objective Imaging CT scan - abdomen: Radiologist's impression: 1. Finding is suggestive of acute appendicitis with inflammatory changes in right lower quadrant. No signs of perforation. No free fluid or free air. No abscess collection. 2. Hepatomegaly, and hepatic steatosis. No discrete hepatic lesion. Labs 03/17/24 03:42 03/17/24 03:42 Labs: Laboratory Results - last 24 hr 03/13/24 03/17/24 01:16 03:42 WBC 3.7 L RBC 3.43 L Hgb 7.3 L Hct 23.7 L MCV 69.0 L MCH 21.2 L MCHC 30.7 RDW 37.1 H Plt Count 276 Sodium 138 Potassium 3.6 Chloride 110 H Carbon Dioxide 22 BUN 5 L Creatinine 0.59 Estimated GFR > 60 BUN/Creatinine Ratio 8.5 Glucose 101 H Calcium 7.6 L Iron 21 L TIBC 343 % Saturation 6 L Transferrin 249 PFSH Social History household members: spouse and family Smoking Status: Never smoker alcohol intake: never Discharge Assessment & Plan Assessment and Plan Assessment: 1. Perforated acute appendicitis, present on admission and active. 2. Profound anemia without report of recent melena or blood per rectum, present on admission and active. Status post 4 units of blood since admission. 3. Hypokalemia, present on admission and active. 4. Gastritis and possible subtle gastric ulcer, present on admission and active. Plan of Treatment: Discharge home with iron tablets, pain medication as needed, Protonix b.i.d. for 1-2 months, and close follow up with General surgery. She will also need to establish with a PCP for ongoing evaluation of her anemia and possible referral to Hematology. Discharge Plan Discharge Plan Patient Disposition: Home Provider Discharge Comment: Stable for discharge home. Her iron levels are still pending but we will started on oral iron and she will see surgery within 7-10 days with repeat labs. She was discussed with Dr. Rincon on the day of discharge. Discharge orders & Medications Prescriptions: New oxycodone 5 mg Tablet 5 mg PO Q3H PRN (Reason: Pain, Moderate (4-6)) Qty: 20 0RF pantoprazole [Protonix] 40 mg tablet,delayed release (DR/EC) 40 mg PO BID Qty: 60 1RF ferrous sulfate [iron] 325 mg (65 mg iron) tablet 325 mg PO DAILY Qty: 30 2RF Medication counseling provided by Pharmacist: Yes Other Ambulatory Orders: Iron (Stat) Timeframe: 1 Week Facility: [facility] - Location: Laboratory Ordered By: Al Celis Discharge Health Status Multidrug resistant organism: No MDRO Diet/Activity/Treatments Diet: Diet as Tolerated Activity: As tolerated. Skin/Wound/Dressing Care Report to your healthcare provider any signs of infection, such as:: chills, fever and increased pain Visit Report/Discharge Packet Instructions: DI for an Appendectomy, DI for Laparoscopy, DI for Gastritis, DI for Prescription Opioid Use Stand Alone Forms: Patient Portal/API, EGD Result: [facility] Surg Quality VTE Deep Vein Thrombosis/Pulmonary Embolism Present on Admission: No
--- NOTE | 2024-03-17 13:12 | PC.NURSE ---
Patient is A&OX4, RA VSS, afebrile. She is independent in her room to the bathroom and tolerating breakfast well. She denies pain or n/v, or dizziness. Abdomen incisions [employer] with steri strips intact. She is medically cleared for discharge and verbalizes understanding of activity, site care, medications and follow up appointments. She is escorted via w/ch with all of her belongings to private vehicle with sister in law and daughter for discharge home today at approximately 1300 pm.
== END 2024-03-17 13:00 | disposition home or self-care (01) | DRG 399 ==
LOC: ED 10:27 → AC 10:37
PROVIDERS: Hospitalist; Internal Medicine; Admitting Provider Surgery; Emergency Provider Emergency Medicine; Referring Provider Emergency Medicine; Visit Provider Surgery
PROC: 0DTJ4ZZ Resection of Appendix, Percutaneous Endoscopic Approach (ICD-10-PCS; CPT 44970; principal; 2024-03-12 14:00)
PROC: 0DJ08ZZ Inspection of Upper Intestinal Tract, Via Natural or Artificial Opening Endoscopic (ICD-10-PCS; CPT 43235; principal; 2024-03-15 07:45)
DX: K35.201 Acute appendicitis with generalized peritonitis, with perforation, without abscess (principal); D64.9 Anemia, unspecified; E87.6 Hypokalemia; K29.50 Unspecified chronic gastritis without bleeding; K25.9 Gastric ulcer, unspecified as acute or chronic, without hemorrhage or perforation
CPT/HCPCS: 36415; 36430; 74177; 80048; 80053; 82248; 82607; 82746; 83540; 83550; 83605; 83615; 83690; 84484; 84703; 85014; 85018; 85025; 85027; 85045; 86850; 86880; 86900; 86901; 87040; 93005; 93010; 96374; 96375; 99285; P9016; J0136; J0330; J1100; J1170; J1885; J2270; J2405; J2543; J2704; J2765; J3010; J3490; Q9967

== ENCOUNTER 2024-11-12 15:35 | Emergency (ER) | payer MEDICAID, SELFPAY ==
[2024-03-12 10:51] VITALS: BMI 30.6
[2024-11-12 15:43] VITALS: BP 117/56; PULSE 87; RESP 18; TEMP 36.5; O2SAT 100; BMI 29.0
--- NOTE | 2024-11-12 16:39 | ED.URI ---
HPI - URI/Sore Throat <Essence Sampson PA-C - Last Filed: 11/12/24 18:32> General Chief Complaint: Upper Respiratory Symptoms Stated Complaint: cough t-10 Time Seen by Provider: 11/12/24 16:05 Source: patient Mode of arrival: Ambulatory History of Present Illness HPI Narrative: 44-year-old female here today for cough. Her family member tested positive for influenza earlier today so she wanted to find out if she has it as well. No fevers. Cough for 10 days without improvement. States when she takes a deep or is more active she coughs more. She has no history of asthma or other lung problems no history of pneumonia. Related Data Previous Rx's Medication Instructions Recorded ferrous sulfate 325 mg (65 mg 325 mg PO DAILY #30 tabs 03/17/24 iron) tablet (iron) oxycodone 5 mg tablet 5 mg PO Q3H PRN Pain, Moderate 03/17/24 (4-6) #20 tabs pantoprazole 40 mg tablet,delayed 40 mg PO BID #60 tabs 03/17/24 release (Protonix) albuterol sulfate 90 mcg/actuation 2 puff inhalation QID PRN 11/12/24 aerosol inhaler shortness of breath or wheezing #6.7 grams fluticasone propionate 110 1 puff inhalation BID #12 grams 11/12/24 mcg/actuation HFA aerosol inhaler Allergies Allergy/AdvReac Type Severity Reaction Status Date / Time No Known Allergies Allergy Verified 03/12/24 13:14 Review of Systems <Essence Sampson PA-C - Last Filed: 11/12/24 18:32> Review of Systems ROS Unobtainable: All systems reviewed & are unremarkable except as noted in HPI and below Patient History <Essence Sampson PA-C - Last Filed: 11/12/24 18:32> Social History household members: spouse and family Smoking Status: Never smoker alcohol intake: never Smoking Status: Never smoker Exam <Essence Samspon PA-C - Last Filed: 11/12/24 18:32> Narrative Exam Narrative: GENERAL: [44] year old patient appears stated age. Well-developed patient, in no acute distress. HEAD: Atraumatic. Normocephalic. EYES: Pupils equal round and reactive. Extraocular motions intact. No scleral icterus. No injection or drainage. ENT: Nose without bleeding, purulent drainage. Throat without erythema, tonsillar hypertrophy or exudate. Airway patent. NECK: Trachea midline. Non tender CARDIOVASCULAR: Regular rate and rhythm without murmurs, gallops, or rubs. RESPIRATORY: Coarse rhonchi left lung. Good air entry throughout no crackles noted. Nonlabored breathing. Speaking in full sentences. No cyanosis or clubbing NEURO: AOx3. SKIN: No rash or erythema of visible areas Initial Vital Signs Initial Vital Signs: Vital Signs Temperature 97.7 F 11/12/24 15:43 Pulse Rate 87 11/12/24 15:43 Respiratory Rate 18 11/12/24 15:43 Blood Pressure 117/56 L 11/12/24 15:43 Pulse Oximetry 100 11/12/24 15:43 Oxygen Delivery Method Room Air 11/12/24 15:43 <Luann Roque MD - Last Filed: 11/13/24 08:09> Initial Vital Signs Initial Vital Signs: Vital Signs Temperature 97.7 F 11/12/24 15:43 Pulse Rate 87 11/12/24 15:43 Respiratory Rate 18 11/12/24 15:43 Blood Pressure 117/56 L 11/12/24 15:43 Pulse Oximetry 100 11/12/24 15:43 Oxygen Delivery Method Room Air 11/12/24 15:43 Course <Essence Sampson PA-C - Last Filed: 11/12/24 18:32> Orders Ordered: ED Orders 11/12/24 15:52 Covid-19 + FLU A/B + RSV - PCR Stat Vital Signs Vital signs: Vital Signs - 8 hr 11/12/24 15:43 11/12/24 17:38 Temperature 97.7 F 98.4 F Pulse Rate 87 80 Respiratory Rate 18 20 Blood Pressure 117/56 L 121/67 Pulse Oximetry 100 97 Oxygen Delivery Method Room Air Room Air <Luann Roque MD - Last Filed: 11/13/24 08:09> Orders Ordered: ED Orders 11/12/24 15:52 Covid-19 + FLU A/B + RSV - PCR Stat Vital Signs Vital signs: Vital Signs - 8 hr 11/12/24 15:43 11/12/24 17:38 Temperature 97.7 F 98.4 F Pulse Rate 87 80 Respiratory Rate 18 20 Blood Pressure 117/56 L 121/67 Pulse Oximetry 100 97 Oxygen Delivery Method Room Air Room Air MDM - URI/Sore Throat <Essence Sampson PA-C - Last Filed: 11/12/24 18:32> Lab Data Labs: Lab Results 11/12/24 Range/Units 15:52 SARS-CoV-2 (PCR) Negative (Negative) Influenza A (RT-PCR) Flu a negative (NEGATIVE) Influenza B (RT-PCR) Flu b positive H (NEGATIVE) RSV (PCR) Negative (Negative) MDM Narrative Medical decision making narrative: Differential includes influenza, bronchitis, viral URI, pneumonia Patient's history and examination are consistent with a viral URI. Normal vital signs, nontoxic appearance, nonlabored breathing. No concerning findings for pneumonia. Positive for influenza B today. Supportive care discussed. Patient has been coughing for 10 days without improvement. Prescription for albuterol and Flovent sent to the pharmacy. ER return precautions for signs and symptoms of worsening issues discussed. Recommend PCP to re-evaluate in 1 week to see if inhalers are helping. <Luann Roque MD - Last Filed: 11/13/24 08:09> Lab Data Labs: Lab Results 11/12/24 Range/Units 15:52 SARS-CoV-2 (PCR) Negative (Negative) Influenza A (RT-PCR) Flu a negative (NEGATIVE) Influenza B (RT-PCR) Flu b positive H (NEGATIVE) RSV (PCR) Negative (Negative) Discharge Plan Departure Patient Disposition: Home Clinical Impression: Influenza Instructions: DI for Influenza -- Adult Activity Restrictions/Additional Instructions: Thank you for choosing us to care for you today. you tested positive for influenza B which is a virus that is common this time of year. You have normal vital signs and no concerning findings for pneumonia or other bacterial infections so antibiotics are not needed. Influenza will resolve on its own with time but you appear to be having a bronchospasm related cough. For this we have prescribed an albuterol and Flovent inhaler. Please use Flovent inhaler every day and albuterol inhaler as needed for coughing spasms. If you are not improving with these medications please follow up with your PCP to discuss. Prescriptions: New albuterol sulfate 90 mcg/actuation HFA aerosol inhaler 2 puff inhalation QID PRN (Reason: shortness of breath or wheezing) Qty: 6.7 0RF fluticasone propionate 110 mcg/actuation HFA aerosol inhaler 1 puff inhalation BID Qty: 12 0RF No Action oxycodone 5 mg Tablet 5 mg PO Q3H PRN (Reason: Pain, Moderate (4-6)) Qty: 20 0RF pantoprazole [Protonix] 40 mg tablet,delayed release (DR/EC) 40 mg PO BID Qty: 60 1RF ferrous sulfate [iron] 325 mg (65 mg iron) tablet 325 mg PO DAILY Qty: 30 2RF Referrals: Miscellaneous,Doctor, [Primary Care Provider] - Stand Alone Forms: Patient Portal/API/Survey ED Sign-out <Luann Roque MD - Last Filed: 11/13/24 08:09> Cosign ED Attending Royalature Attestation: I was immediately available in the department for consultation throughout this patient's visit. Luann Roque MD
[2024-11-12 16:40] LABS: Influenza A - CEPHEID Flu A NEGATIVE (NEGATIVE); Influenza B - CEPHEID Flu B POSITIVE (NEGATIVE); Respiratory Syncytial Virus Negative (Negative)
[2024-11-12 16:41] LABS: COVID-19 CEPHEID 4-PLEX PCR Negative (Negative)
[2024-11-12 17:38] VITALS: BP 121/67; PULSE 80; RESP 20; TEMP 36.9; O2SAT 97
== END 2024-11-12 17:39 | disposition home or self-care (01) ==
PROVIDERS: Emergency Medicine; Emergency Provider Physician Assistant
DX: J11.1 Influenza due to unidentified influenza virus with other respiratory manifestations (principal)
CPT/HCPCS: 0241U; 99281; 99282